=== PATIENT | female | born 1955 | race Caucasian/White ===

== ENCOUNTER 2021-04-12 14:11 | Emergency (ER) | payer OTHER ==
[2021-04-12 14:27] VITALS: BP 122/84; PULSE 82; TEMP 98.1; BMI 25.5
== END 2021-04-12 15:21 | disposition home or self-care (01) ==
LOC: JER 14:11
DX: Z11.1 Encounter for screening for respiratory tuberculosis (principal)
CPT/HCPCS: 71046-TC-FY; 99283-25